=== PATIENT | female | born 1990 | race Caucasian/White ===

== ENCOUNTER 2019-05-14 18:09 | Emergency (ER) | payer MEDICAID ==
[~2019-05-14] VITALS: Ht 157.5 cm; Wt 56.8 kg
[2019-05-14 18:14] VITALS: TEMP 98.8
[2019-05-14] MEDS ORDERED: NATURAL IRON65 MG (18:37)
[2019-05-14] MEDS ORDERED: PREDNISONE 5MG5 MG PO (18:37)
[2019-05-14] MEDS ORDERED: ADALAT CC30 MG PO (18:37)
[2019-05-14] MEDS ORDERED: MACROBID 1100 MG/CAP PO (18:38)
[2019-05-14 19:05] LABS: BASO % 0.1 % (0.0-2.0); GRAN # 13.3 (1.4-6.5); GRAN % 89.5 % (42.2-75.2); LYMPH % 6.6 % (20.0-51.0); MEAN CELL VOLUME 93 fl (80.0-100.0); MEAN CORPUSCULAR HGB CONC 31 g/dl (33.0-37.0); MEAN PLATELET VOLUME 9.4 fl (7.4-10.4); MONO # 0.4 (0.1-0.6); MONO % 2.9 % (1.7-9.3); PLATELET COUNT 154 K/mm3 (130-400); RED BLOOD COUNT 2.24 M/mm3 (4.10-5.30); REDCELL DISTRIBUTION WIDTH-CV 14.4 % (11.5-14.5)
[2019-05-14 19:12] LABS: ALBUMIN 2.6 gm/dL (3.5-5.0); BILIRUBIN,TOTAL 0.4 mg/dL (0.0-1.0); CREATININE, serum 1.79 (0.52-1.25); POTASSIUM 4.9 mmol/L (3.4-5.0); TOTAL PROTEIN 5.6 gm/dL (6.4-8.2)
[2019-05-14 19:15] LABS: HEMATOCRIT 20.8 % (37.0-47.0); HEMOGLOBIN 6.5 g/dl (12.5-16.0); MEAN CORPUSCULAR HEMOGLOBIN 29 pg (27.0-31.0)
[2019-05-14 19:24] LABS: PROTHROMBIN TIME 11.4 SECONDS (9.7-12.8)
[2019-05-14 19:29] LABS: COLLECTION METHOD CLEAN CATCH
[2019-05-14 19:39] LABS: C-REACTIVE PROTEIN 16.8 mg/dL (0.0-0.9)
[2019-05-14 19:46] LABS: HYALINE CAST >12 /lpf; MUCOUS Present /lpf; PH 5 (5-8); URINE APPEARANCE Cloudy; URINE BACTERIA None Seen /hpf; URINE BILIRUBIN Negative (NEGATIVE); URINE BLOOD 3+ (NEGATIVE); URINE COLOR Yellow; URINE GLUCOSE Negative (NEGATIVE); URINE KETONE Negative (NEGATIVE); URINE LEUKOCYTE ESTERASE Negative (NEGATIVE); URINE NITRATE Negative (NEGATIVE); URINE PROTEIN(semi-quant) 3+ (NEGATIVE); URINE RBC >50 /hpf; URINE UROBILINOGEN Negative (NEGATIVE)
[2019-05-14 21:37] LABS: COLLECTION METHOD CATHETER
[2019-05-14 21:49] LABS: AMORPHOUS CRYSTAL Present /uL; GRANULAR CAST >12 /lpf; HYALINE CAST >12 /lpf; MUCOUS Present /lpf; PH 5 (5-8); SQUAMOUS EPITHELIAL None Seen /hpf; URINE APPEARANCE Cloudy; URINE BACTERIA None Seen /hpf; URINE BILIRUBIN Negative (NEGATIVE); URINE BLOOD 3+ (NEGATIVE); URINE COLOR Yellow; URINE GLUCOSE Negative (NEGATIVE); URINE KETONE Negative (NEGATIVE); URINE LEUKOCYTE ESTERASE Negative (NEGATIVE); URINE NITRATE Negative (NEGATIVE); URINE PROTEIN(semi-quant) 3+ (NEGATIVE); URINE RBC >50 /hpf; URINE UROBILINOGEN Negative (NEGATIVE)
[2019-05-14 22:38] VITALS: BP 145/93; PULSE 104
== END 2019-05-14 22:38 | disposition short-term general hospital (02) ==
LOC: COL.ER 18:09
PROVIDERS: Emergency Medicine
DX: O14.95 Unspecified pre-eclampsia, complicating the puerperium (principal); N17.9 Acute kidney failure, unspecified; D64.9 Anemia, unspecified; R60.9 Edema, unspecified
CPT/HCPCS: A4216; J0696; J2405; J3010; J3475

== ENCOUNTER 2020-07-11 15:59 | Inpatient (IN) | payer MEDICAID ==
[~2020-07-11] VITALS: Ht 157.5 cm; Wt 51.4 kg
[~2020-07-11 15:59] MED LIST: ADALAT CC30 MG PO; MACROBID 1100 MG/CAP PO; NATURAL IRON65 MG; PREDNISONE 5MG5 MG PO
[2020-07-11 16:59] VITALS: BP 131/79; PULSE 70; TEMP 98.2
[2020-07-11] MEDS ORDERED: VITAMIN B12 1541 TAB PO (16:59)
[2020-07-11] MEDS ORDERED: CELLCEPT 5500 MG/TAB PO (17:02)
[2020-07-11] MEDS ORDERED: CELEXA 20MG20 MG/TAB PO (17:03)
[2020-07-11] MEDS ORDERED: ZOVIRAX 200MG200 MG PO (17:03)
[2020-07-11] MEDS ORDERED: CEPHALEXIN500 M1 PO (17:05)
[2020-07-11] MEDS ORDERED: ULTRAM 50MG TAB50 MG PO (17:06)
[2020-07-11] MEDS ORDERED: PLAQUENIL 200M200 MG PO (17:08)
[2020-07-11 17:31] LABS: EOS % 0.8 % (0-4.0); GRAN # 2.4 (1.4-6.5); GRAN % 67.3 % (42.2-75.2); LYMPH # 0.9 (1.2-3.4); LYMPH % 24.4 % (20.0-51.0); MEAN CELL VOLUME 91 fl (80.0-100.0); MEAN CORPUSCULAR HGB CONC 32 g/dl (33.0-37.0); MEAN PLATELET VOLUME 10.5 fl (7.4-10.4); MONO # 0.2 (0.1-0.6); MONO % 6.7 % (1.7-9.3); PLATELET COUNT 202 K/mm3 (130-400); RED BLOOD COUNT 3.15 M/mm3 (4.10-5.30); REDCELL DISTRIBUTION WIDTH-CV 12.7 % (11.5-14.5)
[2020-07-11 17:33] LABS: IRON,SERUM 56 ug/dL (35-150); LACTATE DEHYDROGENASE 412 U/L (313-618)
[2020-07-11 17:34] LABS: PROTHROMBIN TIME 10.8 SECONDS (9.7-12.8)
[2020-07-11 17:35] LABS: ALBUMIN 3.3 gm/dL (3.5-5.0); BILIRUBIN,TOTAL 0.2 mg/dL (0.0-1.0); CALCIUM 8.2 mg/dL (8.4-10.2); CREATININE, serum 1.58 (0.52-1.25); POTASSIUM 4.5 mmol/L (3.4-5.0); TOTAL PROTEIN 6.3 gm/dL (6.4-8.2)
[2020-07-11 17:36] LABS: HEMATOCRIT 28.6 % (37.0-47.0); MEAN CORPUSCULAR HEMOGLOBIN 29 pg (27.0-31.0)
[2020-07-11 17:37] LABS: PARTIAL THROMBOPLASTIN TIME 45.6 SECONDS (26.0-37.0)
[2020-07-11 17:54] LABS: IRON,SERUM 51 ug/dL (35-150)
[2020-07-11 18:04] LABS: TOTAL IRON BINDING CAPACITY 205 ug/dL (265-497)
--- NOTE | 2020-07-11 18:41 | NUR ---
Patient arrived to floor at approximately 1640. Patient is alert and oriented and in no acute discomfort. Patient denies nausea or vomiting, reports bilateral flank pain that she describes as sharp but intermittent. Medications entered from patient's medication bottles, she reports that she takes all her medications as directed. Encouraged patient to have family member cigar packer and picker her medications. INT placed to RF in two attempts, patient tolerated well. Patient currently eating dinner and denies further needs, call light within reach.
--- NOTE | 2020-07-11 19:39 | NUR ---
RECEIVED CHANGE OF SHIFT REPORT FROM DAY SHIFT NURSE. PATIENT DENIES ANY NEEDS AT THIS TIME. PATIENT UP INDEPENDENTLY IN ROOM.
[2020-07-11 20:44] VITALS: BP 145/93; PULSE 81; TEMP 98.2
[2020-07-12 00:36] VITALS: BP 133/81; PULSE 76; TEMP 98
[2020-07-12 01:02] LABS: COLLECTION METHOD CLEAN CATCH
[2020-07-12 01:13] LABS: CREATININE, serum 1.75 (0.52-1.25)
[2020-07-12 01:23] LABS: FRACTIONAL EXCRETION OF NA+ 1.1 %
[2020-07-12 01:28] LABS: MUCOUS Present /lpf; PH 5 (5-8); URINE APPEARANCE Cloudy; URINE BACTERIA Occasional /hpf; URINE BILIRUBIN Negative (NEGATIVE); URINE BLOOD 3+ (NEGATIVE); URINE COLOR Yellow; URINE GLUCOSE Negative (NEGATIVE); URINE KETONE Negative (NEGATIVE); URINE LEUKOCYTE ESTERASE 2+ (NEGATIVE); URINE NITRATE Negative (NEGATIVE); URINE PROTEIN(semi-quant) 2+ (NEGATIVE); URINE RBC 20-50 /hpf; URINE UROBILINOGEN Negative (NEGATIVE); URINE WBC >50 /hpf
[2020-07-12 01:29] LABS: URINE PROTEIN:CREAT RATIO 3.63 (0.00-0.14)
[2020-07-12 04:18] VITALS: BP 134/75; PULSE 67; TEMP 98
[2020-07-12 06:23] LABS: GRAN # 2.9 (1.4-6.5); LYMPH # 0.7 (1.2-3.4); LYMPH % 17.7 % (20.0-51.0); MEAN CELL VOLUME 90 fl (80.0-100.0); MEAN CORPUSCULAR HGB CONC 31 g/dl (33.0-37.0); MEAN PLATELET VOLUME 10.9 fl (7.4-10.4); MONO # 0.1 (0.1-0.6); MONO % 3.5 % (1.7-9.3); PLATELET COUNT 191 K/mm3 (130-400); RED BLOOD COUNT 3.27 M/mm3 (4.10-5.30); REDCELL DISTRIBUTION WIDTH-CV 12.5 % (11.5-14.5)
[2020-07-12 06:24] LABS: HEMATOCRIT 29.3 % (37.0-47.0); HEMOGLOBIN 9.2 g/dl (12.5-16.0); MEAN CORPUSCULAR HEMOGLOBIN 28 pg (27.0-31.0)
[2020-07-12 06:35] LABS: ALBUMIN 3.2 gm/dL (3.5-5.0); BILIRUBIN,TOTAL 0.1 mg/dL (0.0-1.0); CALCIUM 8.5 mg/dL (8.4-10.2); CREATININE, serum 1.56 (0.52-1.25); POTASSIUM 5.3 mmol/L (3.4-5.0); TOTAL PROTEIN 6.1 gm/dL (6.4-8.2)
--- NOTE | 2020-07-12 07:20 | NUR ---
CHANGE OF SHIFT REPORT GIVEN TO DAY SHIFT NURSEKP.
[2020-07-12 07:56] VITALS: BP 135/79; PULSE 84; TEMP 99
--- NOTE | 2020-07-12 11:46 | NUR ---
First visit from the face painter. No needs right now.
[2020-07-12 12:36] VITALS: BP 152/94; PULSE 76; TEMP 99.1
[2020-07-12 15:08] VITALS: BP 143/87; PULSE 68; TEMP 99.4
--- NOTE | 2020-07-12 15:55 | NUR ---
Financial Examiner met with the patient to complete initial intake. The patient lives in [place] with her 5 children and her sister, Pam #[phone]. The patient denies DME use and is independent with ADLs. The patient's PCP is Dr. Givens and patient receives medications from [facility] in . The patient does not have advanced directives in the EMR. Her father is and her mother is Cinthia Gomez # . The patient's payor is Medicaid, [facility]. The patient moved to [place] earlier this year. SW discussed resources and she states she does not need anything at this time. The patient is here for KAR[facility]. She has never been on dialysis and does not know if she will need it. DANIELLE collaborated the above information with the patient's nurse.
[2020-07-12 17:27] LABS: COMPLEMENT-C3 28 mg/dL (83-193); COMPLEMENT-C4 5 mg/dL (15-57)
--- NOTE | 2020-07-12 18:30 | NUR ---
Patient has been doing well all day. No complaints of pain or nausea. We had to restart her 24 hour urine collection twice because she accidently had a bowel movement twice into the urine. Was also not able to get the stool sample because it landed in the urine. Patient got up and showered this afternoon. No other changes at this time. Call light within reach.
--- NOTE | 2020-07-12 19:00 | NUR ---
RECEIVED CHANGE OF REPORT FROM DAY SHIFT NURSE. PATIENT RESTING IN BED, DENIES ANY NEEDS. DENIES CHEST PAIN/SHORTNESS OF BREATH. DENIES NUMBNESS/TINGLING TO EXTREMITIES.
--- NOTE | 2020-07-12 20:00 | NUR ---
PATIENT DENIES ANY NEEDS OR C/O. PATIENT UP IN ROOM WITH NO PROBLEMS. IVF INFUSING WITH NO PROBLEMS.
[2020-07-12 23:45] VITALS: BP 137/81; PULSE 68; TEMP 98.3
[2020-07-13 03:36] VITALS: BP 141/88; PULSE 83; TEMP 98.2
[2020-07-13 07:02] LABS: MEAN CELL VOLUME 89 fl (80.0-100.0); MEAN CORPUSCULAR HGB CONC 33 g/dl (33.0-37.0); MEAN PLATELET VOLUME 10.8 fl (7.4-10.4); PLATELET COUNT 188 K/mm3 (130-400); RED BLOOD COUNT 3.12 M/mm3 (4.10-5.30); REDCELL DISTRIBUTION WIDTH-CV 12.5 % (11.5-14.5)
[2020-07-13 07:07] LABS: HEMATOCRIT 27.7 % (37.0-47.0); MEAN CORPUSCULAR HEMOGLOBIN 29 pg (27.0-31.0)
[2020-07-13 07:35] LABS: BAND 7 % (0-10); BASOPHIL 1 % (0-2); HYPOCHROMIA 1+; LYMPHOCYTE 19 % (20.0-51.0); NEUTROPHILS 65 % (42.0-75.2); PLATELET ESTIMATE NORMAL (NORMAL)
--- NOTE | 2020-07-13 07:41 | NUR ---
CHANGE OF SHIFT REPORT GIVEN TO DAY SHIFT NURSEANATOLY. PATIENT RESTING IN BED DURING REPORT WITH NO C/O. IVF INFUSING W/O PROBLEMS.
--- NOTE | 2020-07-13 08:00 | NUR ---
PATIENT IS A&O. VSS. DENIES C/O PAIN OR NAUSEA. PATIENT REPORTS HER LUPUS RASH IS BETTER. PATIENT HAS WENT OFF HER STEROID 3 WEEKS AGO DUE TO ISSUES WITH HER PRESCRIPTION. HEAD TO TOE ASSESSMENT COMPLETE. IV FLUIDS INFUSING INTO RIGHT AC IV VIA PUMP. AM MEDS GIVEN. PATIENT CURRENTLY DOING A 24 HOUR URINE COLLECTION. PATIENT STATING SHE HOPES SHE CAN DISCHARGE HOME TODAY. NO OTHER NEEDS AT THIS TIME. CALL LIGHT IN REACH.
--- NOTE | 2020-07-13 09:00 | NUR ---
PATIENT'S SISTER HAS CALLED SEVERAL TIMES THIS AM, CONFIRMING SHE IS HER DPOA, AND DOESN'T WANT HER TO LEAVE AMA. TODAY IS THE PATIENT'S 11-year-old DAUGHTER'S BIRTHDAY AND SHE WOULD REALLY LIKE TO LEAVE. THE PATIENT'S SISTER IS VERY PUSHY WITH HER IDEA OF WHAT NEEDS TO BE DONE FOR HER SISTER DURING HER HOSPITAL STAY. NURSING HAS GIVEN HER THE PATIENT STATUS UPDATE AND REFFERED TO
[2020-07-13] MEDS ORDERED: GICOCKTAIL PO (11:20)
[2020-07-13] MEDS ORDERED: PROTONIX20 MG PO (11:21)
[2020-07-13] MEDS ORDERED: PREDNISONE20 MG PO (11:22)
[2020-07-13] MEDS ORDERED: CELLCEPT 5500 MG/TAB PO (11:22)
--- NOTE | 2020-07-13 11:30 | NUR ---
AT BEDSIDE. PATIENT WILL DISCHARGE AFTER 1300 TO COMPLETE 24 HOUR URINE COLLECTION. SEE DISCHARGE ORDERS.
[2020-07-13 12:27] VITALS: BP 136/84; PULSE 78; TEMP 98.4
--- NOTE | 2020-07-13 13:45 | NUR ---
PATIENT DISCHARGING HOME VIA WC TO PERSONAL VEHICLE. GAVE DISCHARGE INSTRUCTIONS, SCRIPTS SENT ELECTRONICALLY, AND DISCUSSED F/U APT. ANSWERED QUESTIONS/CONCERNS. DC'D RIGHT AC IV, COVERED WITH GAUZE & COBAN. 24 HOUR URINE COLLECTED AND SENT TO LAB PRIOR TO DISCHARGE.
[2020-07-13 14:23] LABS: URINE TOTAL VOLUME 1475 mL
[2020-07-13 20:00] LABS: CREATININE, serum 0.76 (0.52-1.25)
[2020-07-13 22:38] LABS: URINE CREATININE CLEARANCE 105.8 mL/min (88-128)
== END 2020-07-13 13:50 | disposition home or self-care (01) | DRG 546 ==
LOC: SURG 15:59
PROVIDERS: ADMIT Internal Medicine Nephrology
DX: M32.14 Glomerular disease in systemic lupus erythematosus (principal); N17.9 Acute kidney failure, unspecified; I12.9 Hypertensive chronic kidney disease with stage 1 through stage 4 chronic kidney disease, or unspecified chronic kidney disease; N18.31 Chronic kidney disease, stage 3a; F17.200 Nicotine dependence, unspecified, uncomplicated; R80.9 Proteinuria, unspecified; D64.9 Anemia, unspecified; K12.0 Recurrent oral aphthae
CPT/HCPCS: J7512; J7517

== ENCOUNTER → 2020-10-24 | Outpatient (CLI) | payer MEDICAID ==
[~2020-10-24] VITALS: Ht 157.5 cm; Wt 51.5 kg
[~2020-10-24] MED LIST changes: +CELEXA 20MG20 MG/TAB PO; +CELLCEPT 5500 MG/TAB PO; +CEPHALEXIN500 M1 PO; +GICOCKTAIL PO; -NATURAL IRON65 MG; +NATURAL IRON65 MG PO; +OMNICEF 300MG300 MG PO; +PLAQUENIL 200M200 MG PO; +POLY-IRON 150150 MG PO; +PREDNISONE20 MG PO; +PROTONIX20 MG PO; +ULTRAM 50MG TAB50 MG PO; +VITAMIN B12 1541 TAB PO; +ZOVIRAX 200MG200 MG PO
[2020-10-24 10:00] VITALS: BP 130/78; PULSE 80; TEMP 98.4
--- NOTE | 2020-10-24 10:30 | NUR ---
Pt presented to unit at 0940. Assessment completed with very pleasant and cooperative patient. Reviewed cytoxan infusion planned. Verified that pt had stopped her cellcelpt which she confirms. She reports having recieved cytoxan earlier but that it had been stopped due to the increase of covid risk. She reports that she recieved two doses before. She was given chemotherapy printed information and precautions to follow at home. She was given a sprite on ice per her request. Iv was started by Anne ARTEAGA in [facility] and IV fluid are infusing at this time. CBC was also drawn and sent to lab for stat results. She is on her phone at this time.
--- NOTE | 2020-10-24 11:40 | NUR ---
Lab results were recieved at 115 and call placed to notify Dr Valladares of abnormal results. Voicemail left. 1140 Dr Valladares returns my call and reviews labwork and dosages ordered with me and ok given to proceed with cytoxan infusion. Zofran was given IVSP and cytoxan was verified correct with Nora Saavedra RN by comparing printed order with pharmacy label. Chemotherapy precautions were followed and signage posted. NS continues to infuse at 150ml.hr during infusion and will continue on until full liter is given.
--- NOTE | 2020-10-24 14:00 | NUR ---
Next cytoxan infusion scheduled with pt for November 21 at 0900 here at [facility]. She was given contact information in case of scheduling conflict.
--- NOTE | 2020-10-24 14:15 | NUR ---
Pt has now completed that liter of NS. Vital signs checked and remain within her normal range. INT flushed with NS and dc'd. Site remains without redness swelling or drainage. Chemotherapy precautions were followed during pt's stay and discharge. Pt reports that she is feeling well and was escorted to the restroom. Pt discharged ambulatory to self care with friend waiting to take her home.
[2020-10-25 13:52] LABS: MEAN CELL VOLUME 94 fl (80.0-100.0); MEAN CORPUSCULAR HGB CONC 31 g/dl (33.0-37.0); MEAN PLATELET VOLUME 10.5 fl (7.4-10.4); PLATELET COUNT 169 K/mm3 (130-400); RED BLOOD COUNT 2.51 M/mm3 (4.10-5.30); REDCELL DISTRIBUTION WIDTH-CV 13.4 % (11.5-14.5)
[2020-10-25 13:54] LABS: HEMATOCRIT 23.5 % (37.0-47.0); HEMOGLOBIN 7.2 g/dl (12.5-16.0); MEAN CORPUSCULAR HEMOGLOBIN 29 pg (27.0-31.0)
== END ==
LOC: EUO 10-23 14:11
PROVIDERS: Internal Medicine Nephrology
DX: M32.14 Glomerular disease in systemic lupus erythematosus (principal)
CPT/HCPCS: J2405; J7030; J7050; J9070

== ENCOUNTER 2020-11-19 15:37 | Emergency (ER) | payer MEDICAID ==
[~2020-11-19] VITALS: Ht 157.5 cm; Wt 55.5 kg
[~2020-11-19 15:37] MED LIST changes: -OMNICEF 300MG300 MG PO; -POLY-IRON 150150 MG PO
[2020-11-19 16:06] VITALS: TEMP 100.3
[2020-11-19 16:37] LABS: COLLECTION METHOD CATHETER
[2020-11-19 16:54] LABS: MUCOUS Present /lpf; PH 5 (5-8); URINE APPEARANCE Cloudy; URINE BACTERIA Rare /hpf; URINE BILIRUBIN Negative (NEGATIVE); URINE BLOOD 2+ (NEGATIVE); URINE COLOR Yellow; URINE GLUCOSE Negative (NEGATIVE); URINE KETONE Negative (NEGATIVE); URINE LEUKOCYTE ESTERASE 3+ (NEGATIVE); URINE NITRATE Negative (NEGATIVE); URINE PROTEIN(semi-quant) 3+ (NEGATIVE); URINE RBC >50 /hpf; URINE UROBILINOGEN Negative (NEGATIVE); URINE WBC >50 /hpf
[2020-11-19 16:57] LABS: ALANINE AMINOTRANSFERASE 69 U/L (4-34); ALBUMIN 2.3 gm/dL (3.5-5.0); ALKALINE PHOSPHATASE 60 U/L (50-136); ANION GAP 6 mmol/L (7-16); AST,SGOT 68 U/L (15-37); BILIRUBIN,TOTAL < 0.1 mg/dL (0.0-1.0); BLOOD UREA NITROGEN 63 mg/dL (7-17); CALCIUM 7.5 mg/dL (8.4-10.2); CARBON DIOXIDE 18 mmol/L (22-30); CHLORIDE 115 mmol/L (98-107); CREATININE, serum 2.84 (0.52-1.25); GLUCOSE 86 mg/dL (74-106); POTASSIUM 4.8 mmol/L (3.4-5.0); SODIUM 139 mmol/L (137-145); TOTAL PROTEIN 4.6 gm/dL (6.4-8.2)
[2020-11-19 17:02] LABS: MEAN CELL VOLUME 95 fl (80.0-100.0); MEAN CORPUSCULAR HGB CONC 31 g/dl (33.0-37.0); MEAN PLATELET VOLUME 10.4 fl (7.4-10.4); PLATELET COUNT 100 K/mm3 (130-400); RED BLOOD COUNT 2.13 M/mm3 (4.10-5.30); REDCELL DISTRIBUTION WIDTH-CV 13.8 % (11.5-14.5)
[2020-11-19 17:06] LABS: HEMATOCRIT 20.2 % (37.0-47.0); MEAN CORPUSCULAR HEMOGLOBIN 29 pg (27.0-31.0)
[2020-11-19 17:08] LABS: HEMOGLOBIN 6.2 g/dl (12.5-16.0)
[2020-11-19 18:10] LABS: BAND 4 % (0-10); LYMPHOCYTE 10 % (20.0-51.0); NEUTROPHILS 82 % (42.0-75.2)
[2020-11-19 18:13] LABS: PLATELET ESTIMATE DECREASED (NORMAL)
[2020-11-19 18:16] LABS: OVALOCYTES 1+; SCHISTOCYTES 1+; SPHEROCYTE 1+
[2020-11-19 18:36] VITALS: BP 155/92; PULSE 90
[2020-11-19] MEDS ORDERED: OMNICEF 300MG300 MG PO (18:36)
[2020-11-20 10:37] LABS: PATHOLOGY DIFF REVIEW OK
[2020-11-20] MEDS ORDERED: POLY-IRON 150150 MG PO (15:47)
== END 2020-11-19 18:34 | disposition home or self-care (01) ==
LOC: COL.ER 15:37
PROVIDERS: Nurse Practitioner Primary Care
DX: D64.9 Anemia, unspecified (principal); M32.14 Glomerular disease in systemic lupus erythematosus; N39.0 Urinary tract infection, site not specified; F17.210 Nicotine dependence, cigarettes, uncomplicated; Z88.2 Allergy status to sulfonamides; Z79.52 Long term (current) use of systemic steroids
CPT/HCPCS: J0696; J2270

== ENCOUNTER 2020-11-20 13:47 | Outpatient (CLI) | payer MEDICAID ==
[2020-11-20] VITALS (11 sets, daily range): BP systolic 150–192; BP diastolic 100–117; PULSE 75–107; TEMP 99.1–101
[~2020-11-20] VITALS: Ht 157.5 cm; Wt 57.2 kg
[~2020-11-20 13:47] MED LIST changes: +OMNICEF 300MG300 MG PO
[2020-11-20] MEDS ORDERED: POLY-IRON 150150 MG PO (15:47)
--- NOTE | 2020-11-20 16:06 | NUR ---
Pt has been resting with hernandez of sweatshirt covering head. She is asked lower hernandez due to elevated temp.
--- NOTE | 2020-11-20 17:12 | NUR ---
Report given to JENNI Rodríguez so she may take over pt's cares. Pt resting comfortably, call light in reach. She denies needs at this time.
--- NOTE | 2020-11-20 17:12 | NUR ---
I assumed pt care from Kenn ARTEAGA. Pt is resting supine on bed [facility] hob elevated about 25 deg. Pt is awake and alert, pwd, denies any pain or problems at this time. Pt currently under tx for UTI, started [facility] IV abx yesterday after 1900 in ER, has not picked up prescribed abx yet today. Pt reports plans on picking her abx rx up from [facility] in after transfusion.
--- NOTE | 2020-11-20 20:18 | NUR ---
PT TOLERATED TRANSFUSIONS WITH NO PROBLEM. PT UP TO TOILET IN ROOM 12 WITH STEADY GAIT. FLUSHING LINE AT THIS TIME. PT REMAINS GCS 15, DENIES ANY COMPLAINTS RELATED TO TRANSFUSION.
== END 2020-11-28 14:18 | disposition home or self-care (01) ==
LOC: EUO 13:47
DX: R51.9 Headache, unspecified (principal); D64.9 Anemia, unspecified; N39.0 Urinary tract infection, site not specified
CPT/HCPCS: J1940; P9016

== ENCOUNTER → 2020-11-22 | Outpatient (CLI) | payer MEDICAID ==
[~2020-11-22] MED LIST changes: +POLY-IRON 150150 MG PO
== END ==
LOC: COL.RAD 09:26
DX: R18.8 Other ascites (principal)

== ENCOUNTER 2020-11-26 10:00 | Outpatient (CLI) | payer MEDICAID ==
[~2020-11-26] VITALS: Ht 157.5 cm; Wt 60.0 kg
[2020-11-26 10:29] LABS: GRAN % 74.9 % (42.2-75.2); LYMPH # 0.6 (1.2-3.4); LYMPH % 15.3 % (20.0-51.0); MEAN CELL VOLUME 89 fl (80.0-100.0); MEAN CORPUSCULAR HGB CONC 32 g/dl (33.0-37.0); MEAN PLATELET VOLUME 11.2 fl (7.4-10.4); MONO # 0.4 (0.1-0.6); PLATELET COUNT 79 K/mm3 (130-400); RED BLOOD COUNT 3.31 M/mm3 (4.10-5.30); REDCELL DISTRIBUTION WIDTH-CV 14.5 % (11.5-14.5)
[2020-11-26 10:31] LABS: HEMATOCRIT 29.4 % (37.0-47.0); HEMOGLOBIN 9.3 g/dl (12.5-16.0); MEAN CORPUSCULAR HEMOGLOBIN 28 pg (27.0-31.0)
[2020-11-26 10:53] VITALS: BP 160/108; PULSE 84; TEMP 97.6
--- NOTE | 2020-11-26 10:57 | NUR ---
Pt present to unit for cytoxan infusion today. She reports got a good night's sleep and is feeling pretty good today. Cooperative with assessments. BP elevated at 160-170/103-108. IV fluids started after INT placed by April Ambrocio RN in Rt forearm on first attempt. CBC has been drawn and is pending. PO fluids to bedside. Dr Valladares was notified of pt being here and with her BP elevations as noted. He advised to proceed with treatment.
--- NOTE | 2020-11-26 11:45 | NUR ---
Dr Valladares notified of CBC abnormalities and reports to proceed with cytoxan as ordered per our phone call. Awaiting arrival of cytoxan.
--- NOTE | 2020-11-26 12:27 | NUR ---
Cyclophosphamide verified correct with Radha RN by comparing printed label with printed order. + blood return noted. Following chemotherapy precautions and guidelines for PPE and waste disposal, cytoxan 600mg started to infused over 1 hour with IV fluids at 30ml/hr. Pt tolerating well and denies needs or concerns at this time. Zofran has been given earlier.
--- NOTE | 2020-11-26 13:40 | NUR ---
Cytoxan infusion completed at 1330 and line flushed with NS. Following chemotherapy protocals and precautions, appropriate PPE was worn to dc IV site and waste was discarded into yellow container in sealed plastic bag. IV site was dc'd and pressure applied with cathlon intact. Site remains without swelling, redness or drainage and was wrapped in coban for discharge. BP 140/106, P 76, R 14, 02 sat 99% and T 98.6. Pt reports feeling well and is up and about in room without assistance. Requested to discharge ambulatory to private car. Pt was given printed chemotherapy precautions to follow at home again and these were reviewed. She will follow up with Dr Valladares through the office and anticipate will be scheduled again for infusion in about a month. Support provided and mportance of managing her lupus and her kidneys was emphasized. Pt discharged ambulatory at 1340 to private care to go home with self care.
== END 2020-11-26 13:40 | disposition home or self-care (01) ==
LOC: MEDICAL 10:00 → ONCO 10:00
PROVIDERS: Internal Medicine Nephrology
DX: M32.14 Glomerular disease in systemic lupus erythematosus (principal)
CPT/HCPCS: OP; J2405; J7030; J7050; J9070

== ENCOUNTER → 2021-08-29 | Outpatient (CLI) | payer MEDICAID | LOC: COL.RAD 08:55 | DX: R18.8 Other ascites (principal) ==

== ENCOUNTER 2021-09-28 20:58 | Emergency (ER) | payer MEDICAID ==
[~2021-09-28] VITALS: Ht 154.9 cm; Wt 50.0 kg
[2021-09-28 21:09] VITALS: TEMP 99.9
[2021-09-28 21:33] LABS: MEAN CELL VOLUME 90 fl (80.0-100.0); MEAN CORPUSCULAR HGB CONC 31 g/dl (33.0-37.0); MEAN PLATELET VOLUME 9.2 fl (7.4-10.4); PLATELET COUNT 312 K/mm3 (130-400); RED BLOOD COUNT 3.07 M/mm3 (4.10-5.30); REDCELL DISTRIBUTION WIDTH-CV 18.1 % (11.5-14.5)
[2021-09-28 21:44] LABS: HEMATOCRIT 27.6 % (37.0-47.0); HEMOGLOBIN 8.6 g/dl (12.5-16.0); MEAN CORPUSCULAR HEMOGLOBIN 28 pg (27-31)
[2021-09-28 21:54] LABS: ALBUMIN 2.7 gm/dL (3.5-5.0); BILIRUBIN,TOTAL 0.6 mg/dL (0.2-1.2); CALCIUM 9.1 mg/dL (8.4-10.2); CREATININE, serum 5.91 mg/dL (0.57-1.11); POTASSIUM 4.9 mmol/L (3.5-4.5); TOTAL PROTEIN 7.7 gm/dL (6.2-8.1)
[2021-09-28 22:08] LABS: BAND 1 % (0-10); EOSINOPHIL 1 % (0-4); LYMPHOCYTE 6 % (20.0-51.0); NEUTROPHILS 90 % (42.0-75.2); PLATELET ESTIMATE NORMAL (NORMAL)
[2021-09-28 22:10] LABS: HYPOCHROMIA 2+; SCHISTOCYTES 1+
[2021-09-28 22:11] LABS: TROPONIN-I 0.063 ng/mL (0.00-0.033)
[2021-09-28 22:14] LABS: POIKILOCYTOSIS 2+
[2021-09-28 22:15] LABS: ANISOCYTOSIS 2+
[2021-09-28 22:20] LABS: TARGET CELLS 1+
[2021-09-28 22:21] LABS: OVALOCYTES 1+
[2021-09-28 23:54] VITALS: BP 171/136; PULSE 123
== END 2021-09-28 23:54 | disposition left against medical advice (07) ==
LOC: COL.ER 20:58
PROVIDERS: Emergency Medicine
DX: I31.3 Pericardial effusion (noninflammatory) (principal); J81.1 Chronic pulmonary edema; R06.03 Acute respiratory distress; R79.89 Other specified abnormal findings of blood chemistry; I13.0 Hypertensive heart and chronic kidney disease with heart failure and stage 1 through stage 4 chronic kidney disease, or unspecified chronic kidney disease; N18.9 Chronic kidney disease, unspecified; M32.9 Systemic lupus erythematosus, unspecified; Z20.822 Contact with and (suspected) exposure to COVID-19
CPT/HCPCS: J0692; J3010; J3370; J7050

== ENCOUNTER 2021-09-29 01:30 | Emergency (ER) | payer MEDICAID ==
[~2021-09-29] VITALS: Ht 167.6 cm; Wt 50.0 kg
[2021-09-29 01:39] VITALS: TEMP 98.5
[2021-09-29 04:00] VITALS: BP 144/108; PULSE 120
== END 2021-09-29 04:21 | disposition short-term general hospital (02) ==
LOC: COL.ER 01:30
DX: R06.03 Acute respiratory distress (principal); D72.829 Elevated white blood cell count, unspecified; J81.1 Chronic pulmonary edema; I31.3 Pericardial effusion (noninflammatory); I12.0 Hypertensive chronic kidney disease with stage 5 chronic kidney disease or end stage renal disease; D63.1 Anemia in chronic kidney disease; N18.6 End stage renal disease; F17.200 Nicotine dependence, unspecified, uncomplicated; Z99.2 Dependence on renal dialysis; Z79.899 Other long term (current) drug therapy
CPT/HCPCS: J3010; J7050

== ENCOUNTER 2021-10-31 11:05 | Day surgery (SDC) | payer MEDICAID ==
[~2021-10-31] VITALS: Ht 157.5 cm; Wt 54.1 kg
[2021-10-31 11:53] LABS: BASO % 0.2 % (0.0-2.0); EOS # 0.1 K/mm3 (0.0-0.7); GRAN # 6.8 K/mm3 (1.4-6.5); GRAN % 84.1 % (42.2-75.2); LYMPH # 0.5 K/mm3 (1.2-3.4); LYMPH % 6.4 % (20.0-51.0); MEAN CELL VOLUME 96 fl (80.0-100.0); MEAN CORPUSCULAR HGB CONC 29 g/dl (33.0-37.0); MEAN PLATELET VOLUME 9.5 fl (7.4-10.4); MONO # 0.6 K/mm3 (0.1-0.6); MONO % 7.3 % (1.7-9.3); PLATELET COUNT 268 K/mm3 (130-400); RED BLOOD COUNT 2.45 M/mm3 (4.10-5.30); REDCELL DISTRIBUTION WIDTH-CV 17.6 % (11.5-14.5)
[2021-10-31 11:54] LABS: HEMATOCRIT 23.5 % (37.0-47.0); MEAN CORPUSCULAR HEMOGLOBIN 28 pg (27-31)
[2021-10-31 11:55] LABS: HEMOGLOBIN 6.8 g/dl (12.5-16.0)
--- NOTE | 2021-10-31 11:55 | NUR ---
DR WEATHERS NOTIFIED OF CRITICAL HGB 6.8. VS GIVEN TO DR WEATHERS. NO NEW ORDERS AT THIS TIME. DR WEATHERS WILL COME SEE PATIENT AND DISCUSS PLAN OF CARE.
[2021-10-31 12:00] LABS: CALCIUM 8.4 mg/dL (8.4-10.2); CREATININE, serum 3.75 mg/dL (0.57-1.11); POTASSIUM 4.1 mmol/L (3.5-4.5)
[2021-10-31 12:03] VITALS: BP 158/117; PULSE 101; TEMP 98.9
[2021-10-31] MEDS ORDERED: PERCOCET 325 MG1 TA3 PO (12:26)
[2021-10-31] MEDS ORDERED: CATAPRES 0.1MG0.1 MG PO ×2 (12:27→12:40)
[2021-10-31] MEDS ORDERED: PRINCIPEN500 MG PO (12:29)
[2021-10-31] MEDS ORDERED: LASIX 40MG TABL40 MG PO (12:29)
[2021-10-31] MEDS ORDERED: ALDACTONE 25MG25 M1 PO (12:30)
[2021-10-31] MEDS ORDERED: APRESOLINE 25MG25 MG PO (12:30)
[2021-10-31] MEDS ORDERED: PLAQUENIL 200M200 MG PO (12:31)
[2021-10-31] MEDS ORDERED: COREG 25MG25 MG/TAB PO (12:31)
[2021-10-31] MEDS ORDERED: XOPENEX HF0.045 MG/A IH (12:32)
[2021-10-31] MEDS ORDERED: ZOFRAN ODT4 MG PO (12:32)
[2021-10-31] MEDS ORDERED: VALISONE OI 15GM TP (12:34)
[2021-10-31 14:00] VITALS: BP 155/109; PULSE 91; TEMP 99.1
--- NOTE | 2021-10-31 14:00 | NUR ---
PT FROM OR TO [facility]. RECEIVED REPORT FROM CAMPAIGN MANAGEMENT SPECIALIST AND CUSHION WORKER. VS OBTAINED. DRESSING ON L SIDE SHOWS A QUARTER SIZE SHADOWING. AREA MARKED. DRESSING ON R SIDE SHADOWING NOTED, AREA MARKED. WILL CONTINUE TO MONITOR PT.
--- NOTE | 2021-10-31 14:10 | NUR ---
PT 02 80%, APPLIED 2L PER NC. PT RESPONDED WITHIN 1 MIN TO 95%. WILL CONTINUE TO MONITOR PT.
[2021-10-31 14:15] VITALS: BP 157/113; PULSE 88; TEMP 100.7
--- NOTE | 2021-10-31 14:15 | NUR ---
PT ON 2L PER NC. TEMPORAL TEMP 100.7. CONTINUING TO MONITOR PT. NO NEW DRAINAGE NOTED ON BOTH DRESSINGS. PT AWAKENS WHEN CALLED, BUT IS VERY GROGGY.
[2021-10-31 14:30] VITALS: BP 154/114; PULSE 88; TEMP 99
--- NOTE | 2021-10-31 14:30 | NUR ---
NO NEW DRAINAGE NOTED ON DRESSING. PT O2 IS 1L PER NC. WILL CONTINUE TO MONITOR PT. TEMP 99.0 ORALLY.
[2021-10-31 14:45] VITALS: BP 148/108; PULSE 88
--- NOTE | 2021-10-31 14:45 | NUR ---
PT O2 0.5L PER NC. PT CONTINUES TO AROUSE WHEN CALLED, BUT DOES NOT STAY ALERT. WILL CONTINUE TO MONITOR PT.
[2021-10-31 15:00] VITALS: BP 156/111; PULSE 90
--- NOTE | 2021-10-31 15:00 | NUR ---
PT ON 0.5L NC. PT CONTINUES TO AROUSE WHEN CALLED, BUT UNABLE TO STAY FOCUSED OR ALERT. WILL CONTINUE TO MONITOR PT.
--- NOTE | 2021-10-31 15:04 | NUR ---
PT ON 0.5L PER NC. O2 SATS DROPPED TO 69%. INCREASED O2 TO 2L PER NC. PT WAS ABLE TO RECOVER TO 95% WITHIN 1 MIN. PT CONTINUES TO AROUSE WHEN CALLED, BUT DOES NOT STAY ALERT.
--- NOTE | 2021-10-31 15:20 | NUR ---
CALL TO DR WEATHERS RE: PT STATUS. RECEIVED ORDERS OF STAT CXR AND TO CONSULT HOSPITALIST.
--- NOTE | 2021-10-31 15:32 | NUR ---
CALL TO DR BARRIOS, HOSPITALIST FOR CONSULT OF PT PER DR WEATHERS'S ORDER. DR BARRIOS STATED SHE WOULD CONTACT DR WEATHERS FOR HISTORY OF PT.
--- NOTE | 2021-10-31 16:00 | NUR ---
Dr. Rivers was here and talked with the patient. Patient states that she wants to go home. More awake and conversing with physician. Oxygen was turned down to 1L per Dr. Rivers and will continue to observe.
--- NOTE | 2021-10-31 16:10 | NUR ---
Sats maintained at 96-98 on 1L per nasal cannula and now down to 0.5L. Drinking Apple juice. Texting on phone.
--- NOTE | 2021-10-31 16:15 | NUR ---
Tolerating apple juice. Oxygen turned off. Sats 96% on room air.
--- NOTE | 2021-10-31 16:20 | NUR ---
Continues to text on phone and room air sats 98%. Tolerated apple juice.
--- NOTE | 2021-10-31 16:25 | NUR ---
IV discontinued and site is free of redness. Room air sats 96%. States that she contacted her sister and she will be here to pick her up and is wanting to go home.
--- NOTE | 2021-10-31 16:30 | NUR ---
Patient assisted with dressing and needs minimal help.
--- NOTE | 2021-10-31 16:35 | NUR ---
Dismissal instructions given and voices understanding of these. Provided office number for questions and concerns.
--- NOTE | 2021-10-31 16:43 | NUR ---
Patient taken to the main entrance per wheelchair and assisted into vehicle by this nurse with dismissal instructions in hand. Private vehicle driven by sister who states that they are attempting to get home oxygen for use at night through patients PCP.
== END 2021-10-31 16:43 | disposition home or self-care (01) ==
LOC: SDCO 11:05
PROVIDERS: Surgery
DX: N18.6 End stage renal disease (principal); I12.0 Hypertensive chronic kidney disease with stage 5 chronic kidney disease or end stage renal disease; I10 Essential (primary) hypertension; R09.02 Hypoxemia; J90 Pleural effusion, not elsewhere classified; I31.3 Pericardial effusion (noninflammatory); I38 Endocarditis, valve unspecified; D64.89 Other specified anemias; F17.210 Nicotine dependence, cigarettes, uncomplicated; Z99.2 Dependence on renal dialysis; Z99.89 Dependence on other enabling machines and devices; Z79.899 Other long term (current) drug therapy
CPT/HCPCS: 99215; J0690; J1644; J2001; J2250; J2704; J3010; J7120

== ENCOUNTER 2022-02-20 11:15 | Emergency (ER) | payer MEDICAID ==
[~2022-02-20] VITALS: Ht 167.6 cm; Wt 52.3 kg
[~2022-02-20 11:15] MED LIST changes: +ALDACTONE 25MG25 M1 PO; +APRESOLINE 25MG25 MG PO; +CATAPRES 0.1MG0.1 MG PO; +COREG 25MG25 MG/TAB PO; +LASIX 40MG TABL40 MG PO; +PERCOCET 325 MG1 TA3 PO; +PRINCIPEN500 MG PO; +VALISONE OI 15GM TP; +XOPENEX HF0.045 MG/A IH; +ZOFRAN ODT4 MG PO
[2022-02-20 11:20] VITALS: TEMP 97.7
[2022-02-20 12:06] LABS: BASO % 0.2 % (0.0-2.0); EOS # 0.2 K/mm3 (0.0-0.7); EOS % 1.9 % (0.0-4.0); GRAN # 7.5 K/mm3 (1.4-6.5); GRAN % 74.2 % (42.2-75.2); LYMPH # 1.6 K/mm3 (1.2-3.4); LYMPH % 15.5 % (20.0-51.0); MEAN CELL VOLUME 92 fl (80.0-100.0); MEAN CORPUSCULAR HEMOGLOBIN 27 pg (27-31); MEAN CORPUSCULAR HGB CONC 29 g/dl (33.0-37.0); MEAN PLATELET VOLUME 9.8 fl (7.4-10.4); MONO # 0.8 K/mm3 (0.1-0.6); MONO % 7.9 % (1.7-9.3); PLATELET COUNT 249 K/mm3 (130-400); RED BLOOD COUNT 3.76 M/mm3 (4.10-5.30); REDCELL DISTRIBUTION WIDTH-CV 19.4 % (11.5-14.5)
[2022-02-20 12:07] LABS: ARTERIAL BLD GAS O2 SATURATION 99.6 % (92-100); ARTERIAL BLD GAS TCO2 CT 24.7; ARTERIAL BLOOD GAS BASE EXCESS -2.1 (-2-2); ARTERIAL BLOOD GAS HCO3 23.4 meq/L (22-26); ARTERIAL BLOOD GAS pH 7.35 (7.35-7.45)
[2022-02-20 12:08] LABS: ARTERIAL BLOOD GAS PO2 213.6 mmHg (80-100)
[2022-02-20 12:17] LABS: HEMATOCRIT 34.7 % (37.0-47.0)
[2022-02-20 12:22] LABS: ALBUMIN 2.7 gm/dL (3.5-5.0); BILIRUBIN,TOTAL 0.6 mg/dL (0.2-1.2); CREATININE, serum 5.68 mg/dL (0.57-1.11); POTASSIUM 5.5 mmol/L (3.5-4.5); TOTAL PROTEIN 7.7 gm/dL (6.2-8.1)
[2022-02-20 12:36] LABS: TROPONIN-I 0.046 ng/mL (0.00-0.033)
[2022-02-20] MEDS ORDERED: CATAPRES 0.1MG0.1 MG PO (13:51)
[2022-02-20] MEDS ORDERED: APRESOLINE 25MG25 MG PO (13:57)
[2022-02-20] MEDS ORDERED: PROTONIX 40MG T40 MG PO (14:07)
[2022-02-20 21:00] VITALS: BP 115/90; PULSE 86
== END 2022-02-20 21:00 | disposition short-term general hospital (02) ==
LOC: COL.ER 11:15
PROVIDERS: Nurse Practitioner
DX: R06.02 Shortness of breath (principal)
CPT/HCPCS: J1940; J2270; J2405; J7050; P9047

== ENCOUNTER → 2022-10-23 | Outpatient (CLI) | payer MEDICAID ==
[~2022-10-23] MED LIST changes: +PROTONIX 40MG T40 MG PO
== END ==
LOC: COL.RAD 10-09 14:15
DX: I77.0 Arteriovenous fistula, acquired (principal); N18.6 End stage renal disease

== ENCOUNTER 2023-01-08 10:58 | Day surgery (SDC) | payer MEDICAID ==
[~2023-01-08] VITALS: Ht 157.5 cm; Wt 47.0 kg
[2023-01-08] MEDS ORDERED: PERCOCET 325 MG1 TA3 PO ×2 (11:54→15:53)
[2023-01-08] MEDS ORDERED: ENTRESTO 24 MG1 EACH PO (11:55)
[2023-01-08 12:10] LABS: CREATININE, serum 5.99 mg/dL (0.57-1.11); POTASSIUM 5.4 mmol/L (3.5-4.5)
--- NOTE | 2023-01-08 12:46 | NUR ---
DR. WEATHERS AND CHELSIE BURKS INFORMATION RESOURCES DIRECTOR INFORMED OF BMP RESULTS. DR. WEATHERS INFORMED THAT PATIENT IS DROWSY AND HAS LARGE AMOUNT OF PERIORBITAL EDEMA. ORDER FOR CBC OBTAINED. LAB NOTIFIED OF NEW ORDER.
[2023-01-08 12:50] LABS: BASO # 0.1 K/mm3 (0.0-0.2); BASO % 0.8 % (0.0-2.0); EOS # 0.2 K/mm3 (0.0-0.7); EOS % 2.6 % (0.0-4.0); GRAN # 5.6 K/mm3 (1.4-6.5); GRAN % 71.7 % (42.2-75.2); LYMPH # 1.2 K/mm3 (1.2-3.4); LYMPH % 15.9 % (20.0-51.0); MEAN CELL VOLUME 92 fl (80.0-100.0); MEAN CORPUSCULAR HGB CONC 29 g/dl (33.0-37.0); MEAN PLATELET VOLUME 9.4 fl (7.4-10.4); MONO # 0.7 K/mm3 (0.1-0.6); MONO % 8.9 % (1.7-9.3); PLATELET COUNT 346 K/mm3 (130-400)
[2023-01-08 12:51] LABS: HEMATOCRIT 33.2 % (37.0-47.0); HEMOGLOBIN 9.6 g/dl (12.5-16.0); MEAN CORPUSCULAR HEMOGLOBIN 27 pg (27-31)
[2023-01-08 12:58] VITALS: BP 154/95; PULSE 79; TEMP 98.5
--- NOTE | 2023-01-08 13:25 | NUR ---
DR. WEATHERS AND CHELSIE BURKS METAL CUTTER HERE TO TALK WITH THE PATIENT. WILL PROCEED WITH THE SURGERY.
[2023-01-08 15:35] VITALS: BP 172/67; PULSE 67; TEMP 98.1
[2023-01-08 15:50] VITALS: BP 191/75; PULSE 72
[2023-01-08 16:05] VITALS: BP 181/87; PULSE 72
[2023-01-08 16:20] VITALS: BP 185/81; PULSE 76
--- NOTE | 2023-01-08 16:45 | NUR ---
1535 RETURNS TO ROOM 6 PER CART. DROWSY, AROUSES TO VEBAL STIMULI. FAMILIARIZED WITH SURROUNDINGS. RESP UNLABORED. HOB ELEVATED 40 DEGREES. VITAL SIGNS OBTAINED. INCISION RIGHT MID ARM INTACT. NO REDNESS OR DRAINAGE OBSERVED O2 AT 2L/NC CALL LIGHT AT SIDE, FRIEND IN ROOM 1550 REMAINS DROWSY, AROUSES EASILY TO VERBAL STIMULI. 1605 AROUSES EASILY CONVERSES APPROPRIATELY. O2 OFF. COUGH AND DEEP BREATHING ENCOURAGED. 1620 TOLERATES PO WATER WITHOUT NAUSEA 1630 DISCHARGE INSTRUCTIONS REVIEWED. PATIENT VERBALIZES UNDERSTANDING. COPY PROVIDED IN DISCHARGE FOLDER. 1638 SITS ON EDGE OF BED. DRESSES SELF
== END 2023-01-08 16:45 | disposition home or self-care (01) ==
LOC: SDCO 10:58
PROVIDERS: Surgery
DX: I12.0 Hypertensive chronic kidney disease with stage 5 chronic kidney disease or end stage renal disease (principal); N18.6 End stage renal disease; F17.210 Nicotine dependence, cigarettes, uncomplicated; K21.9 Gastro-esophageal reflux disease without esophagitis
CPT/HCPCS: J0360; J0690; J2405; J2704; J3010